=== PATIENT | male | born 1950 | race Caucasian/White ===

== ENCOUNTER → 2024-08-10 09:31 | Outpatient (REF) | payer OTHER, SELFPAY | LOC: RAD 09:31 | PROVIDERS: ATTENDING PHYSICIAN Family Medicine | DX: T15.90XA Foreign body on external eye, part unspecified, unspecified eye, initial encounter (principal) | CPT/HCPCS: 70030 ==

== ENCOUNTER → 2024-08-26 17:54 | Outpatient (REF) | payer OTHER, SELFPAY | LOC: MRI 3T 17:54 | PROVIDERS: ATTENDING PHYSICIAN Specialist | DX: R97.20 Elevated prostate specific antigen [PSA] (principal) | CPT/HCPCS: 72197; A9575 ==

== ENCOUNTER → 2024-10-06 12:12 | Outpatient (REF) | payer OTHER, SELFPAY | LOC: PET 12:12 | PROVIDERS: ATTENDING PHYSICIAN Radiology Radiation Oncology | DX: C61 Malignant neoplasm of prostate (principal) | CPT/HCPCS: 78815 ==

== ENCOUNTER → 2024-10-19 13:53 | Outpatient (REF) | payer OTHER, SELFPAY | LOC: PAVMRI 13:53 | PROVIDERS: ATTENDING PHYSICIAN Radiology Radiation Oncology | DX: C61 Malignant neoplasm of prostate (principal) | CPT/HCPCS: 74183; A9575 ==